=== PATIENT | female | born 1970 | race Caucasian/White ===

== ENCOUNTER 2019-11-20 03:46 | Emergency (ER) | payer OTHER, SELFPAY ==
--- NOTE | 2019-11-20 03:50 | XRR_ITS ---
PROCEDURE INFORMATION: Exam: XR Right Ankle Exam date and time: 11/20/2019 5:29 AM Age: 49 years old Clinical indication: Injury or trauma; Injury history: Not specified; Initial encounter; Blunt trauma; Ankle; Right TECHNIQUE: Imaging protocol: XR Right ankle. Views: Frontal, lateral, and oblique views. COMPARISON: No relevant prior studies available. FINDINGS: Bones/joints: Oblique/spiral fracture of the distal fibula extending superior posterior laterally from the level of the tibiotalar joint. 1.8 mm of lateral displacement of the distal segment. Slight lateral subluxation of the talus at the tibiotalar articulation. Large joint effusion. A small Achilles' tendon enthesis of the calcaneus is present. Minimal plantar calcaneal ossified spur present. Dorsal articular marginal hypertrophy of the navicular at the talonavicular articulation with para-articular chronic ossification. Soft tissues: Mild lateral malleolar regional soft tissue swelling. XR/XR ankle RT min 3V* [id number] IMPRESSION: 1. Distal fibular fracture with tibia-fibular subluxation. 2. Mild Achilles tendon insertional enthesopathy.
[2019-11-20 03:53] VITALS: BP 139/79; PULSE 84; RESP 16; TEMP 36.3; O2SAT 98; BMI 29.2
--- NOTE | 2019-11-20 05:04 | ED_ITS ---
HPI - Extremity Problem General: Chief complaint: Extremity Injury, Lower Stated complaint: FELL OUT OF BED/R ANKLE INJURY Time Seen by Provider: 11/20/19 04:16 History of Present Illness: HPI Narrative: Neli is a nice 49-year-old female who comes in complaining of right ankle pain. She states she tripped getting out of bed and rolled her right ankle. She complains of pain over the right lateral malleolus. She denies any numbness tingling or weakness distal. She denies any tib-fib pain or foot pain. Associated symptoms: Deny chest pain, fever(s) or rash Review of Systems Const: Denies: fever(s), chills, body aches, fatigue, malaise, night sweats or diaphoresis Eyes: Denies: change in vision, blurry vision or blind spots ENMT: Denies: throat pain, odynophagia, hoarseness, ear or mastoid pain, ear discharge, change in hearing or nasal discharge Card: Denies: chest pain, palpitations, irregular heart rhythm, lightheadedn ess, syncope, pre-syncope, dyspnea on exertion or orthopnea Resp: Denies: dyspnea, productive cough, non-productive cough, wheezing, hemoptysis or chest congestion GI: Denies: abdominal pain, nausea, vomiting, hematemesis, coffee ground emesis, heartburn, diarrhea, constipation, GI cramping, hematochezia or melena : Denies: flank pain, dysuria, urinary frequency, urinary urgency, oliguria, urinary incontinence or hematuria Musc: Reports: joint pain; Denies: neck pain, back pain, extremity pain, extremity swelling, joint swelling, joint redness, joint warmth or joint stiffness Skin/Breast: Denies: rash, pruritus, erythema, skin tenderness or jaundice Neuro: Denies: headache(s), numbness in extremities, weakness in extremities, sensory changes, lack of coordination, difficulty walking, dizziness, vertigo, confusion or Slurred speech present Endo: Denies: polyuria, polydipsia, tired all the time, cold intolerance, excessive sweating, flushing, hot flashes or heat intolerance Parker/Lymph: Denies: easy bruising, easy bleeding, petechiae, purpura or enlarged lymph nodes All/Imm: Denies: urticaria, throat swelling, tongue swelling, facial swelling or acute wheezing PFSH ED PFSH: Social History Smoking and tobacco status: never smoked Physical Exam Const: COMMON NORMALS: no acute distress, patient oriented x3, no limitations, healthy appearing and well nourished EXAM LIMITATIONS: no altered mental status GENERAL APPEARANCE: cooperative, well kempt and well developed HENMT: COMMON NORMALS: normocephalic, atraumatic, hearing grossly normal bilaterally, external ears normal, EAC's normal, Normal external nose present and moist oral mucous membranes HEAD & SCALP: normal to inspection, normocephalic and atraumatic FACE & SINUS: normal facial exam and face symmetric NOSE: Normal external nose present and Normal nares present EXTERNAL EAR: Yes external ears normal EXTERNAL AUDITORY CANAL: EAC's normal MOUTH: Normal oral and palatal mucosa present, lip normal and tongue normal Eye: COMMON NORMALS: Equal, round and reactive pupils present, EOMs intact bilaterally, conjunctivae normal and no scleral icterus GENERAL EYE: appearance normal, both eyes and all related structures ALIGNMENT: Yes alignment normal PERIORBITAL: periorbital findings normal EYELID: eyelids normal CONJUNCTIVA: Yes conjunctivae normal SCLERA: sclerae normal PUPIL: Yes Equal, round and reactive pupils present Neck/C-Spine: COMMON NORMALS: full ROM, no lymphadenopathy, supple, no meningeal signs and no JVD GENERAL: Yes normal visual inspection and Yes trachea midline CERVICAL SPINE: Yes cervical ROM normal Chest: COMMONS NORMALS: normal inspection of the chest and normal palpation of entire chest wall Resp: COMMON NORMALS: normal respiratory effort, No retractions, No use of accessory muscles and clear to auscultation bilaterally EFFORT & INSPECTION: Yes able to speak in complete sentences AUSCULTATION: clear to auscultation bilaterally, no crackles, no rales, no rhonchi and no wheezes Cardio: COMMON NORMALS: no JVD, regular rate, regular rhythm, S1 normal heart sound present, S2 normal heart sound present, No gallops present (Cardio), No clicks present (Cardio), No murmurs present (Cardio) and No rub (Cardio) RATE: regular rate RHYTHM: regular rhythm HEART SOUNDS: S1 normal heart sound present, S2 normal heart sound present, no click, no gallops, no murmurs and no rubs GI: COMMON NORMALS: Soft to palpation, non-tender, No hepatosplenomegaly present and no masses PALPATION: Yes Soft to palpation, No Tenderness to palpation present (GI), No Guarding due to palpation present (GI), No Rigid due to palpation, Yes No hepatosplenomegaly present, No Hernia present, No Palpable mass present and No Pulsatile mass present : COMMON NORMALS: Yes no CVA tenderness BLADDER/KIDNEY EXAM: Yes no CVA tenderness EXTERNAL FEMALE EXAM: No Hernia present Back/Pelvis: COMMON NORMALS: no CVA tenderness, thoracic and lumbar spine normal to inspection, no thoracic nor lumbar tenderness and thoraco-lumbar ROM normal Extremity: NARRATIVE EXTREMITY EXAM: Right ankle with swelling over the right lateral malleolus. Neurovascularly intact distal. Strong DP pulse. Neuro: COMMON NORMALS: patient oriented x3, CN's II-XII intact bilaterally, moves all extremities, no focal motor deficits and no sensory deficits noted MENINGEAL SIGNS: Yes no meningeal signs SPEECH: speech normal Psych: COMMON NORMALS: mental status grossly normal, Normal thought process present, cooperative, normal affect, speech normal and activity/motor behavior normal APPEARANCE: Yes well kempt SPEECH: Yes normal speech THOUGHT PROCESS: Normal thought process present Skin: COMMON NORMALS: no rashes or lesions noted, turgor normal, no jaundice, no petechiae and no mottling GENERAL SKIN EXAM: no rashes or lesions noted and turgor normal Course Vital Signs: Vital signs: Vital Signs Temperature 97.4 F L 11/20/19 03:53 Pulse Rate 84 11/20/19 03:53 Respiratory Rate 16 11/20/19 03:53 Blood Pressure 139/79 11/20/19 03:53 Pulse Oximetry 98 11/20/19 03:53 MDM - Extremity (Nontraumatic) MDM Narrative: Medical decision making narrative: Patient's joint is grossly stable. She is neurovascular intact. There is a hint of subluxation laterally but 95+ percent of the joint is aligned. There is no posterior dislocation or subluxation. Place her in splints, place her on crutches and have her follow-up with orthopedics. Imaging Data^: Right Ankle: My impression: Distal fibula fracture with possible mild subluxation. Discharge Plan Discharge Patient Disposition: Home, Self-Care Clinical Impression: Ankle fracture Qualifiers: Encounter type: initial encounter Fracture type: closed Laterality: right Qualified Code(s): S82.891A - Other fracture of right lower leg, initial encounter for closed fracture Condition: Stable Prescriptions: New hydrocodone-acetaminophen [Edison] 5-325 mg tablet 1 tab PO Q6H PRN (Reason: pain) 5 Days Qty: 20 RF: 0 Discharge Orders: Discharge Order (Routine); Ordered 11/20/19 Ordered By: Dior Jefferson Referrals: Ashley Betancourt MD [Physician] - 1-3 days Nilo Whitley DO [Primary Care Provider] - Discharge Diet: Advance as tolerated Discharge Activity: Limit activity as instructed Patient Instructions: Ankle Fracture (ED) Activity Restrictions/Additional Instructions: Please return to the ER immediately for any of the signs or symptoms listed on your discharge instruction sheets, worsening/changing of your symptoms, you are not getting better as quickly as expected, or for ANY other cause or concerns. Do not bear weight on your right leg and use your crutches at all times until instructed further by Dr. Cruz. Return to the ER for increased pain, foot numbness or weakness, or for any other cause for concern. Coding Level of Care Code ED Guest Service Representative for Januszg Fwd Exam Comprehensive
[2019-11-20 06:19] VITALS: BP 129/87; PULSE 83; RESP 16; O2SAT 97
--- NOTE | 2019-11-22 09:19 | DCPLANNER ---
manager club had message to schedule a follow up appointment for patient with ortho. manager club called the ortho clinic, spoke with Sejal, gave clinic patients information. manager club was told that patients information would be printed and reviewed. Clinic will call therapeutic case manager and patient with appointment information.
--- NOTE | 2019-11-23 12:45 | DCPLANNER ---
Patient had a follow up appointment scheduled for 11.22.19 with ortho, patient did attend the appointment.
== END 2019-11-20 06:23 | disposition home or self-care (01) ==
PROVIDERS: Emergency Provider Emergency Medicine; Family Provider Family Medicine; PCP Family Medicine
DX: S82.831A Other fracture of upper and lower end of right fibula, initial encounter for closed fracture (principal); W01.0XXA Fall on same level from slipping, tripping and stumbling without subsequent striking against object, initial encounter
CPT/HCPCS: 12345; 29515; 73610; 99281; 99283

== ENCOUNTER → 2019-11-22 08:23 | Outpatient (BNVA) | payer OTHER, SELFPAY | PROVIDERS: Family Provider Family Medicine; PCP Family Medicine; Referring Provider Emergency Medicine; Visit Provider Podiatrist Foot & Ankle Surgery | DX: S82.891A Other fracture of right lower leg, initial encounter for closed fracture (principal); S82.434A Nondisplaced oblique fracture of shaft of right fibula, initial encounter for closed fracture; X58.XXXA Exposure to other specified factors, initial encounter | CPT/HCPCS: 73610 ==

== ENCOUNTER 2019-11-24 06:07 | Day surgery (SDC) | payer OTHER, SELFPAY ==
[2019-11-23 09:53] VITALS: BMI 31.1
--- NOTE | 2019-11-24 | XR_ITS ---
WS: [id number] INTRAOPERATIVE TECHNIQUE: 2 Spot fluoroscopic images for intraoperative purposes. FLUOROSCOPY TIME: 2 seconds CLINICAL INFORMATION: RIGHT ANKLE ORIF COMPARISON: None. FINDINGS: Postoperative changes plate and screw fixation distal fibula and lateral malleolus. Normal ankle mort ise. XR/XR ankle RT 2V [id number] IMPRESSION: Images obtained for intraoperative purposes.
--- NOTE | 2019-11-24 | SCC_ITS ---
Procedure: ORIF right fibular fracture 2.0 seconds of fluoroscopic guidance, for a cumulative dose of 0.05 mGy, was provided to Dr. Spencer by the radiology department. C-arm images of the RIGHT ankle were saved for the patient's permanent record. [facility]
--- NOTE | 2019-11-24 06:27 | P.ANESASSM_ITS ---
Pre-Anesthetic Assessment Pre-Anesthetic Assessment: Height/Weight: Height 1.57 m Weight 77.111 kg Preop Diagnosis: Bimalleolar fracture right ankle Proposed Procedure: Operation Date: 11/24/19 07:00 Proposed Procedures p ORIF right bimalleolar fracture 35798 282.401A(Right) - Abdoul Spencer DPM Familial anesthetic complications: No trouble Was Beta Christiano taken within 24 hours: N/A Last intake: NPO > 8 hrs Social: Social History: No alcohol and No tobacco Exam: Pre-Anes Outpt Exam: alert, oriented x 3, clear to auscultation bilaterally and regular rate & rhythm Airway: Cervical ROM: WNL MP: 2 Dentition: Chipped Additional comments: missing History/ROS: No significant complaints Anesthetic Plan: ASA status: 1 Anesthesia: General and Regional (specify below) Other: popliteal Risk of > 500 ml blood loss (7ml/kg in children): No PFSH Anesthesia PFSH: Family History (Updated 11/22/19 @ 08:16 by Norma Del Rosario LPN) Denies family history of Cancer Social History (Updated 11/22/19 @ 08:16 by Norma Del Rosario LPN) Smoking and tobacco status: never smoked Household members: spouse Marital status: Current occupational status: employed Current occupation: [address] [employer] Anesthesia Cardiac Studies: No Data to Display
[2019-11-24 06:29] VITALS: BP 125/105; PULSE 95; RESP 16; TEMP 36.3; O2SAT 98
[2019-11-24 06:38] LABS: OR HCG Qualitative Urine Negative (Negative)
[2019-11-24] MEDS: sodium chloride 0.9% 1,000 ML 30 ML IV (06:55)
--- NOTE | 2019-11-24 06:58 | ANES.PROC ---
Anesthesia Procedures Procedure/Date: 11/24/19 Nerve Block ^: Nerve Block 1: Main Anesthesia: general anesthesia Time Out Performed: Yes Consent: requested by attending/covering physician, from patient, risks and benefits reviewed and patient agrees to proceed Nerve block location: popliteal (R) Anesthesia monitors applied: pulse oximetry, BP cuff and oxygen Nerve block position: supine Anesthetic Used: ropivicaine 0.5% and with decadron (4 mg) Amount of anesthesia used (mL): 30 Ultrasound used to: recognize landmarks Interscalene/Femoral BLK: 4 stimuplex 21 g needle used for position and inplane approach, visualize local anesthetic spread and no vascular puncture identified Injection: neg aspiration of heme Patient Tolerated Procedure: well and no complications Complications: none
[2019-11-24] MEDS: midazolam 1 mg/mL INJ 2 mL 2 MG IVP (07:05)
--- NOTE | 2019-11-24 07:06 | P.HPUD_ITS ---
Surgery/Procedure H&P Update DATE OF PROCEDURE: November 24, 2019 DATE H&P PERFORMED: 11/22/19 H&P UPDATE INFORMATION: I have reviewed H&P completed within last 30 days, I have examined patient prior to procedure and H&P is in [facility] EMR on date indicated PREOP DIAGNOSIS: Bimalleolar fracture right ankle PLANNED PROCEDURE: Operation Date: 11/24/19 07:00 Proposed Procedures p ORIF right bimalleolar fracture 39740 282.401A(Right) - Abdoul Spencer DPM
[2019-11-24 08:05] VITALS: BP 120/81; PULSE 90; RESP 16; TEMP 36.2; O2SAT 100
[2019-11-24 08:10] VITALS: BP 121/93; PULSE 87; RESP 15; O2SAT 99
[2019-11-24 08:15] VITALS: BP 110/88; PULSE 88; RESP 18; TEMP 36.2; O2SAT 98
[2019-11-24 08:18] VITALS: BP 110/80; PULSE 89; RESP 16; TEMP 36.6; O2SAT 99
[2019-11-24 08:23] VITALS: BP 117/79; PULSE 80; RESP 16; TEMP 36.6; O2SAT 98
--- NOTE | 2019-11-26 18:17 | PM.OP ---
Operative Report Date of procedure: November 24, 2019 Pre-op Diagnosis: Bimalleolar fracture right ankle Post-op diagnosis: same Pathology: none sent Surgeon: Abdoul Spencer D.P.M. Weather Reporter: Molly Anesthesia: General Estimated blood loss: 5 mL Complications: None Condition: stable Disposition: PACU Brief History: Ms. Neff sustained a Aniceto Gonsalez B fibular fracture, right ankle. Displacement and shortening appreciated on initial x-rays emergency department. Also avulsion fracture at the posterior malleolus on lateral view. I recommended ORIF of her right fibular fracture. Risks include pain, bleeding, numbness, infection, failure to reduce deformity, delayed union, malunion, hardware irritation and need for further surgical intervention. Also discussed with patient that she would likely experience posttraumatic arthritis of the right ankle in the future. Patient is agreeable wishes to proceed. Procedure: Under mild sedation the patient was brought to the operating room and placed on the operating table in supine position. A timeout was performed. Anesthesia was then administered by the anesthesia service. Local anesthesia was injected by myself 5 cc of 0.5% Marcaine plain and a right saphenous nerve block fashion. Popliteal block was performed preoperatively per anesthesia. Well-padded pneumatic tourniquet was applied to the right thigh. The right lower extremity was then scrubbed, prepped and draped utilizing normal aseptic technique. Right foot and ankle were exanguinated with an Esmarch bandage and the tourniquet was inflated to 250 mmHg. Attention was directed to the distal fibula of the right lower extremity where bony landmarks were palpated including the lateral malleolus and anterior border of the distal fibular shaft. A linear longitudinal incision was made approximately 8 cm in length directly over the fibula with a #15 blade with dissection carried down directly to bone utilizing sharp and blunt technique. Care was taken to retract and preserve neurovascular and tendinous structures. Bleeders were ligated and cauterized as necessary. Periosteal incision was made with a 15 blade and the fracture site was appreciated this was a Aniceto Gonsalez B with an oblique fracture starting at the ankle mortise. Displacement was appreciated. This was distracted and hematoma was evacuated utilizing a curette and flushed with saline solution. Fracture was reduced and held together and anatomical position utilizing [id number] bone reduction forceps. Next utilizing standard AO technique a one third tubular plate was applied at the lateral fibula this was a 7 hole, a combination of locking and nonlocking screws were utilized these were 3.5 millimeter screws provided by [employer] with 4 screws proximal to the fracture site and 2 screws distal. Excellent bony apposition and compression noted. Very stable fixation of the fracture was appreciated and temporary fixation was removed. Intraoperative fluoroscopy was utilized to confirm reduction of fracture and placement of hardware is noted to be excellent in all 3 planes. Incision site is flushed with copious amounts of sterile saline solution. Periosteum was reapproximated utilizing 2-0 Vicryl. Subcutaneous tissue reapproximated utilizing 4-0 Vicryl and skin reapproximated utilizing skin sabiha. Incision site was dressed with Adaptic, sterile 4 x 4's, Kerlix Mayur wrap followed by a multilayer compressive posterior splint. Ankle was splinted in a neutral position 90 degrees to the tibia. Tourniquet was deflated and a prompt hyperemic response was noted to the distal digits of the right lower extremity. Patient tolerated the procedure well and was transferred to the PACU with vital signs stable and vascular status intact. Following a period of postoperative monitoring she will be discharged home she is to rest and elevate her right lower extremity and is to remain strict nonweightbearing. Was provided pain medication to be taken judiciously as prescribed and was also provided my cell phone number to contact me with any postoperative questions or concerns. She was also instructed to take a baby aspirin once daily for DVT prophylaxis.
== END 2019-11-24 08:45 | disposition home or self-care (01) ==
PROVIDERS: PCP Family Medicine; Visit Provider Podiatrist Foot & Ankle Surgery
PROC: (CPT 27814; principal; 2019-11-24 07:00)
DX: S82.841A Displaced bimalleolar fracture of right lower leg, initial encounter for closed fracture (principal); X58.XXXA Exposure to other specified factors, initial encounter
CPT/HCPCS: 27814; 12345; 73600; 76000; 81025; 84703; 96374; C1713; J0690; J1100; J2250; J2704; J2795; J3010; J3490; J7030

== ENCOUNTER → 2019-12-08 14:08 | Outpatient (BNVA) | payer OTHER, SELFPAY | PROVIDERS: PCP Family Medicine; Visit Provider Podiatrist Foot & Ankle Surgery | DX: S82.841A Displaced bimalleolar fracture of right lower leg, initial encounter for closed fracture (principal); X58.XXXA Exposure to other specified factors, initial encounter | CPT/HCPCS: 73610 ==

== ENCOUNTER 2019-12-08 15:20 | Outpatient (CLI) | payer OTHER, SELFPAY | END 2019-12-08 15:21 | disposition home or self-care (01) | LOC: SPT 15:21 | PROVIDERS: PCP Family Medicine; Visit Provider Podiatrist Foot & Ankle Surgery | DX: Z46.89 Encounter for fitting and adjustment of other specified devices (principal); S82.841D Displaced bimalleolar fracture of right lower leg, subsequent encounter for closed fracture with routine healing; X58.XXXD Exposure to other specified factors, subsequent encounter | CPT/HCPCS: 97760; L4361 ==

== ENCOUNTER → 2019-12-26 14:24 | Outpatient (BNVA) | payer OTHER, SELFPAY | PROVIDERS: PCP Family Medicine; Visit Provider Podiatrist Foot & Ankle Surgery | DX: S82.841A Displaced bimalleolar fracture of right lower leg, initial encounter for closed fracture (principal); Z98.890 Other specified postprocedural states; X58.XXXA Exposure to other specified factors, initial encounter | CPT/HCPCS: 73610 ==

== ENCOUNTER 2020-01-16 13:33 | Outpatient (CLI) | payer OTHER, SELFPAY ==
--- NOTE | 2020-01-16 13:39 | XR_ITS ---
WS: [id number] Right ankle, 3 views, 01/16/2020 Clinical Data: post operative Comparison: Right ankle, 12/26/2019 Findings: The fracture of the distal right fibula is well reduced with an orthopedic plate fixed with 6 orthope dic screws. The distal tibia and ankle mortise are unremarkable. XR/XR ankle RT min 3V* [id number] Impression: Internal fixation of distal right fibular fracture.
== END 2020-01-16 13:34 | disposition home or self-care (01) ==
LOC: RAD 13:36
PROVIDERS: PCP Family Medicine; Visit Provider Podiatrist Foot & Ankle Surgery
DX: Z98.890 Other specified postprocedural states (principal); S82.401A Unspecified fracture of shaft of right fibula, initial encounter for closed fracture; X58.XXXA Exposure to other specified factors, initial encounter
CPT/HCPCS: 73610

== ENCOUNTER 2020-01-16 14:57 | Outpatient (CLI) | payer OTHER, SELFPAY | END 2020-01-16 14:58 | disposition home or self-care (01) | LOC: SPT 14:57 | PROVIDERS: PCP Family Medicine; Visit Provider Podiatrist Foot & Ankle Surgery | DX: Z46.89 Encounter for fitting and adjustment of other specified devices (principal); S82.841D Displaced bimalleolar fracture of right lower leg, subsequent encounter for closed fracture with routine healing; X58.XXXD Exposure to other specified factors, subsequent encounter | CPT/HCPCS: 97760; L1902 ==

== ENCOUNTER → 2020-02-16 14:14 | Outpatient (BNVA) | payer OTHER, SELFPAY | PROVIDERS: PCP Family Medicine; Visit Provider Podiatrist Foot & Ankle Surgery | DX: S82.841D Displaced bimalleolar fracture of right lower leg, subsequent encounter for closed fracture with routine healing (principal); W01.0XXD Fall on same level from slipping, tripping and stumbling without subsequent striking against object, subsequent encounter; Z47.89 Encounter for other orthopedic aftercare | CPT/HCPCS: 73610 ==

== ENCOUNTER 2021-08-26 09:51 | Outpatient (CLI) | payer OTHER, SELFPAY ==
--- NOTE | 2021-08-26 10:01 | MM_ITS ---
WS: [id number] BILATERAL SCREENING DIGITAL MAMMOGRAM WITH CAD HISTORY: SCREENING COMPARISON: 04/29/2019 and 04/07/2018 Bilateral CC and MLO views submitted. Computer aided detection analyzed. Breast composition: There are scattered areas of fibroglandular density. No suspicious masses, microc alcifications or architectural distortion. MM/[place] [id number] IMPRESSION: BI-RADS: 1-Negative FOLLOW UP: 1 Year Follow-up
== END 2021-08-26 09:52 | disposition home or self-care (01) ==
PROVIDERS: PCP Family Medicine; Visit Provider Family Medicine
DX: Z12.31 Encounter for screening mammogram for malignant neoplasm of breast (principal)
CPT/HCPCS: 77067

== ENCOUNTER 2022-09-17 08:55 | Outpatient (CLI) | payer OTHER, SELFPAY ==
--- NOTE | 2022-09-17 09:06 | MM_ITS ---
WS: [id number] SCREENING DIGITAL TOMOSYNTHESIS MAMMOGRAM WITH CAD HISTORY: SCREENING COMPARISON: 08/26/2021, 08/30/2018 Bilateral CC and MLO with tomosynthesis views submitted. Synthetic mammography reviewed. Computer aid ed detection analyzed. Breast composition: There are scattered areas of fibroglandular density. No suspicious masses, microc alcifications or architectural distortion. MM/[place] [id number] IMPRESSION: BI-RADS: 1-Negative FOLLOW UP: 1 Year Follow-up
== END 2022-09-17 08:56 | disposition home or self-care (01) ==
PROVIDERS: PCP Family Medicine; Visit Provider Family Medicine
DX: Z12.31 Encounter for screening mammogram for malignant neoplasm of breast (principal)
CPT/HCPCS: 77063; 77067

== ENCOUNTER 2023-02-19 06:33 | Day surgery (SDC) | payer OTHER, SELFPAY ==
[2023-02-17 09:27] VITALS: BMI 22.8
--- NOTE | 2023-02-19 06:43 | W.PM.OPSUD ---
Surgery/Procedure H&P Update DATE OF PROCEDURE: February 19, 2023 DATE H&P PERFORMED: 11/22/19 H&P UPDATE INFORMATION: I have reviewed H&P completed within last 30 days, I have examined patient prior to procedure, No changes to prior documentation and H&P is in [facility] EMR on date indicated PLANNED PROCEDURE: Operation Date: 02/19/23 08:10 Proposed Procedures p Colonoscopy 05479,Z12.11(Not Applicable) - Gasper Breaux MD
[2023-02-19 06:45] VITALS: BP 117/93; PULSE 94; RESP 16; TEMP 36.1; O2SAT 97
[2023-02-19] MEDS: sodium chloride 0.9% 1,000 ML 30 ML IV (06:59)
--- NOTE | 2023-02-19 07:09 | P.ANESASSM_ITS ---
Pre-Anesthetic Assessment Height/Weight: Height 1.57 m Weight 56.699 kg Temp Pulse Resp BP Pulse Ox O2 Del Method 97.0 F L 94 16 117/93 97 Room Air 02/19/23 06:45 02/19/23 06:45 02/19/23 06:45 02/19/23 06:45 02/19/23 06:45 02/19/23 06:45 Preop Diagnosis: Screening Operation Date: 02/19/23 08:10 Proposed Procedures p Colonoscopy 71464,Z12.11(Not Applicable) - Gasper Breaux MD Familial anesthetic complications: None Was Beta Christiano taken within 24 hours: N/A Was Clonidine taken within 24 hours: N/A Last intake: Intake Last Liquid Date 02/18/23 Last Liquid Time 22:00 Last Solid Date 02/17/23 Last Solid Time 20:30 Social No alcohol and No tobacco Exam alert, oriented x 3 and clear to auscultation bilaterally Airway Submandibular: within normal limits Cervical ROM: within normal limits Mallampati: Class II Dentition: full History/ROS No significant history except as noted Pulmonary None reported CV/HEM None reported None reported Hepatic None reported GI Gastroesophageal Reflux Disease (rare, diet related) Metabolic None reported Musc/skel None reported Neuropsych Anxiety Anesthetic Plan ASA status: 2 Anesthesia: Anesthesia Evaluation and MAC Risk of > 500 ml blood loss (7ml/kg in children): No Medications/Allergies Home Medications Medication Instructions Recorded Confirmed Last Taken Type bupropion HCl 150 mg 24 hr tablet, 150 mg PO DAILY #90 tabs 01/15/23 02/19/23 02/17/23 Rx extended release escitalopram oxalate 20 mg tablet 20 mg PO DAILY #90 tabs 01/15/23 02/19/23 02/17/23 Rx Allergies Allergy/AdvReac Type Severity Reaction Status Date / Time No Known Allergies Allergy Verified 02/17/23 09:23 Current Medications Generic Name Dose Route Start Last Admin Trade Name Freq PRN Reason Stop Dose Admin Sodium Chloride 1,000 mls @ 30 mls/hr 02/19/23 06:45 02/19/23 06:59 Sodium Chloride 0.9% IV 30 mls/hr .Q24H WADE Administration PFSH Anesthesia Medical History Generalized anxiety disorder Hot flashes Insomnia Major depression Surgical History History of ankle surgery Family History Other CAD (coronary artery disease) Cancer Denies family history of Diabetes Social History (Updated 02/03/23 @ 10:03 by CANDE Rader) Smoking and tobacco status: never smoked Alcohol intake: current Alcohol intake frequency: holidays/special occasions only Household members: spouse Marital status: Current occupational status: employed Current occupation: [employer] Anesthesia Cardiac Studies: No Data to Display
[2023-02-19 08:26] VITALS: BP 117/77; PULSE 81; RESP 18; TEMP 36.1; O2SAT 100
[2023-02-19 08:37] VITALS: BP 121/84; PULSE 80; RESP 18; O2SAT 99
[2023-02-19 08:47] VITALS: BP 107/87; PULSE 78; RESP 18; O2SAT 97
--- NOTE | 2023-02-19 13:25 | ANE.PACU2 ---
Inpatient post-anesthesia follow up: Airway intact: Yes Vital signs: Temperature 96.9 F Pulse Rate 78 Respiratory Rate 18 Blood Pressure 107/87 Pulse Oximetry 97 Oxygen Delivery Me thod Room Air Oxygen Flow Rate Fraction of Inspir ed Oxygen Hydration adequate: Yes Nausea and vomiting: No Pain level: 2 Mental status: Baseline
== END 2023-02-19 09:00 | disposition home or self-care (01) ==
PROVIDERS: PCP Clinical Nurse Specialist Adult Health; Visit Provider Surgery
PROC: 0DJD8ZZ Inspection of Lower Intestinal Tract, Via Natural or Artificial Opening Endoscopic (ICD-10-PCS; CPT 45378; principal; 2023-02-19 08:10)
DX: Z12.11 Encounter for screening for malignant neoplasm of colon (principal); L81.4 Other melanin hyperpigmentation
CPT/HCPCS: 45378; J2704; J7030

== ENCOUNTER → 2024-10-26 13:05 | Outpatient (BNVA) | payer OTHER, SELFPAY | PROVIDERS: PCP Family Medicine; Visit Provider Family Medicine | DX: Z00.00 Encounter for general adult medical examination without abnormal findings (principal); G25.81 Restless legs syndrome; D64.9 Anemia, unspecified | CPT/HCPCS: 80053; 80061; 82306; 82728; 84443; 85025 ==

== ENCOUNTER 2024-11-01 08:09 | Outpatient (CLI) | payer OTHER, SELFPAY ==
--- NOTE | 2024-11-01 08:20 | MM_ITS ---
WS: [id number] BILATERAL 3D TOMOSYNTHESIS DIGITAL SCREENING MAMMOGRAPHY WITH CAD CLINICAL INFORMATION: breast cancer screening HISTORY: Screening mammogram. No current complaints. COMPARISON: 2022 TECHNIQUE: Bilateral CC and MLO views. FINDINGS: Scattered fibroglandular densities bilaterally. No suspicious focal mass, asymmetry, calcifications, or architectural distortion. No evidence of malignancy. Incidental punctate calcifications. Parenchymal scarring upper outer LEFT breast MM/MM scr BI tomosynthesis [id number] IMPRESSION: DENSITY: There are scattered areas of fibroglandular density. BI-RADS: 2 - Benign. FOLLOW UP: 1 Year Follow-up Recommend return to annual screening mammography.
== END 2024-11-01 08:10 | disposition home or self-care (01) ==
PROVIDERS: PCP Family Medicine; Visit Provider Family Medicine
DX: Z12.31 Encounter for screening mammogram for malignant neoplasm of breast (principal); R92.323 Mammographic fibroglandular density, bilateral breasts; R92.1 Mammographic calcification found on diagnostic imaging of breast; N64.89 Other specified disorders of breast
CPT/HCPCS: 77063; 77067

== ENCOUNTER 2025-06-05 16:08 | Outpatient (CLI) | payer BC, SELFPAY ==
--- NOTE | 2025-06-05 16:16 | XRR_ITS ---
PROCEDURE INFORMATION: Exam: XR Lumbosacral Spine Exam date and time: 06/05/2025 4:22 PM Age: 55 years old Clinical indication: Low back pain radiating down RT legfor several months, no known recent trauma; Additional info: R sciatica x 6 mon TECHNIQUE: Imaging protocol: Radiologic exam of the lumbosacral spine. Views: 2 or 3 views. COMPARISON: No relevant prior studies available. FINDINGS: Bones/joints: Mild levocurvature of the thoracolumbar junction. Marked degenerative disc disease at L5-S1. Mild degenerative change of the other lumbar levels. Moderate degenerative change of the lower thoracic spine. No acute fracture or dislocation. Mild degenerative changes lower lumbar spine facet joints. Soft tissues: Vascular calcifications noted in the soft tissues. XR/XR lumbar spine 2-3V* [id number] IMPRESSION: No acute pathology. Degenerative changes as detailed above.
== END 2025-06-05 16:09 | disposition home or self-care (01) ==
LOC: RAD 16:11
PROVIDERS: PCP Family Medicine; Visit Provider Family Medicine
DX: M54.31 Sciatica, right side (principal); M51.372 Other intervertebral disc degeneration, lumbosacral region with discogenic back pain and lower extremity pain; M47.894 Other spondylosis, thoracic region; M79.89 Other specified soft tissue disorders
CPT/HCPCS: 72100

== ENCOUNTER 2025-06-13 15:58 | Outpatient (CLI) | payer BC, SELFPAY ==
--- NOTE | 2025-06-13 16:00 | MR_ITS ---
WS: [id number] MRI LUMBAR SPINE NONCONTRAST TECHNIQUE: Sagittal T1, T2 and STIR imaging. Axial T1 and T2 imaging. CLINICAL INFORMATION: R sided sciatica, L5 DDD COMPARISON: None. FINDINGS: Mild lumbar curve. No acute compression. L1-L2: Mild facet arthropathy. Spinal canal and foramen are patent. L2-L3: Mild annular bulging. Mild facet arthropathy. Spinal canal and foramen are patent. L3-L4: Mild annular bulging. Mild facet arthropathy. Spinal canal and foramen are patent. L4-L5: Mild annular bulging. Slight impingement subarticular recess bilaterally and traversing L5 nerve roots. Moderate facet arthropathy. Mild RIGHT foraminal narrowing. L5-S1: Broad-based central protrusion L5-S1 impinges the traversing S1 nerve roots bilaterally. Mild central canal stenosis. Moderate RIGHT and no significant LEFT foraminal narrowing. Visualized pelvic bony structures: Normal. Paravertebral soft tissues: Normal. MR/MR lumbar spine wo con* [id number] IMPRESSION: 1. Mild lumbar curve. No acute compression. 2. Broad-based central disc protrusion L5-S1 impinges the traversing S1 nerve roots bilaterally. Mild central canal stenosis. 3. RIGHT foraminal protrusion L5-S1 impinges the exiting RIGHT L5 nerve root w ith moderate RIGHT foraminal narrowing. 4. Annular bulging L4-5 with impingement of traversing RIGHT greater than LEFT L5 nerve roots. 5. Moderate facet arthropathy with ligamentum flavum hypertrophy L3-L5.
== END 2025-06-13 15:59 | disposition home or self-care (01) ==
PROVIDERS: PCP Family Medicine; Visit Provider Family Medicine
DX: M51.16 Intervertebral disc disorders with radiculopathy, lumbar region (principal); M47.896 Other spondylosis, lumbar region; M48.061 Spinal stenosis, lumbar region without neurogenic claudication; M43.8X6 Other specified deforming dorsopathies, lumbar region; M51.17 Intervertebral disc disorders with radiculopathy, lumbosacral region; M47.816 Spondylosis without myelopathy or radiculopathy, lumbar region; M48.07 Spinal stenosis, lumbosacral region
CPT/HCPCS: 72148

== ENCOUNTER → 2025-06-27 14:45 | Outpatient (BNVA) | payer BC, SELFPAY | PROVIDERS: PCP Family Medicine; Visit Provider Orthopaedic Surgery | DX: M54.9 Dorsalgia, unspecified (principal); M54.31 Sciatica, right side | CPT/HCPCS: 72110 ==